=== PATIENT | female | born 1955 | race Caucasian/White ===

== ENCOUNTER 2021-10-25 08:14 | Outpatient (CLI) | payer MEDICARE, BC, SELFPAY ==
--- NOTE | 2021-10-25 08:15 | CRLHL7_ITS ---
For Patients: As a result of the Century Cures Act, medical imaging exams and procedure reports are released immediately into your electronic medical record. You may view this report before your referring provider. If you have questions, please contact your health care provider. Technique: Double-contrast examination was performed with barium. History of esophageal stricture with balloon dilation. Indication: Chest pain, burning sensation. Comparison: None. Findings: Esophagus: Narrowing/stricture at the gastroesophageal junction with GE junction measuring approximately 7-8 mm in diameter. Questionable small erosion just proximal to the GE junction (best seen on series 3). No significant irregularity or obvious extrinsic compressing mass. When patient is placed prone there is a moderate-sized sliding-type hiatal hernia. Exam was performed as an esophagram of the no obvious abnormality or erosion in the stomach. 13 mm. Tablet transverses the GE junction without delay. Esophageal motility is normal. Gastroesophageal reflux: None observed during exam. Fluoroscopy time: 0:51 minutes Impression: 1. Mild distal esophageal stricture with questionable small erosion just proximal to the GE junction. No obvious mass lesion. Recommend attention on endoscopy. 2. Moderate sized sliding-type hiatal hernia seen only when prone. 3. Esophageal motility was normal. 4. No demonstrable reflux during the exam. Dictated by Gabino Carrasco MD @ 10/25/2021 9:44:34 AM (Electronically Signed)
== END 2021-10-25 08:15 | disposition home or self-care (01) ==
LOC: RAD 08:19
PROVIDERS: PCP Internal Medicine; Visit Provider Surgery
DX: R07.89 Other chest pain (principal); K44.9 Diaphragmatic hernia without obstruction or gangrene
CPT/HCPCS: 74221

== ENCOUNTER 2021-11-06 16:39 | Outpatient (CLI) | payer MEDICARE, BC, SELFPAY ==
[2021-11-06 15:43] LABS: Albumin* 4.6 g/dL (3.3-5.0); Chloride* 101 mmol/L (96-114); Potassium* 4.3 mmol/L (3.6-5.1); Sodium* 136 mmol/L (135-149)
[2021-11-06 15:45] LABS: Cholesterol* 235 mg/dL (90-199)
[2021-11-06 15:46] LABS: Alanine Aminotransferase* 22 U/L (4-35); Alkaline Phosphatase* 99 U/L (40-150); Aspartate Amino Transferase* 24 U/L (12-35); Bilirubin Total* 0.9 mg/dL (0.1-1.5); Blood Urea Nitrogen* 16 mg/dL (7-30); Carbon Dioxide* 25 mmol/L (20-32); Creatinine* 0.7 mg/dL (0.5-1.5); Estimated Glomerular Filt Rate 95 ml/min; Glucose* 136 mg/dL (60-115); Total Protein* 7.4 g/dL (6.0-8.3); Triglycerides* 107 mg/dL (40-149)
[2021-11-06 15:47] LABS: Calcium* 9.5 mg/dL (8.4-10.6); HDL Cholesterol* 54 mg/dL (>=50); LDL Cholesterol Calculated 160 mg/dL (<100)
== END 2021-11-06 16:40 | disposition home or self-care (01) ==
PROVIDERS: PCP Internal Medicine; Visit Provider Internal Medicine
DX: E11.9 Type 2 diabetes mellitus without complications (principal)
CPT/HCPCS: 80053; 80061

== ENCOUNTER 2021-11-15 09:11 | Outpatient (CLI) | payer MEDICARE, BC, SELFPAY ==
--- NOTE | 2021-11-15 10:48 | W.ANESCHARGE ---
Anesthesia Charges Start Date/Time Anesthesia Start Date: 11/15/21 Anesthesia Start Time: 10:10 Stop Date/Time Anesthesia Stop Date: 11/15/21 Anesthesia Stop Time: 10:48
--- NOTE | 2021-11-15 10:54 | W.ANESCHARGE ---
Anesthesia Charges Start Date/Time Anesthesia Start Date: 11/15/21 Anesthesia Start Time: 10:10 Stop Date/Time Anesthesia Stop Date: 11/15/21 Anesthesia Stop Time: 10:48
== END 2021-11-15 09:12 | disposition home or self-care (01) ==
LOC: OP CLINIC 09:12
PROVIDERS: PCP Internal Medicine; Visit Provider Surgery
DX: Z12.11 Encounter for screening for malignant neoplasm of colon (principal); K63.5 Polyp of colon; K57.30 Diverticulosis of large intestine without perforation or abscess without bleeding; Z83.71 Family history of colonic polyps
CPT/HCPCS: 00811; 45385; 88305; J2704

== ENCOUNTER 2022-01-25 13:01 | Outpatient (CLI) | payer MEDICARE, BC, SELFPAY | END 2022-01-25 13:02 | disposition home or self-care (01) | LOC: LKVREF 01-30 15:08 | PROVIDERS: PCP Internal Medicine; Visit Provider Family Medicine | DX: R35.0 Frequency of micturition (principal); R30.0 Dysuria; N39.0 Urinary tract infection, site not specified | CPT/HCPCS: 87086 ==

== ENCOUNTER 2022-02-26 11:45 | Outpatient (CLI) | payer MEDICARE, BC, SELFPAY ==
[2022-02-26 14:37] LABS: Chloride* 102 mmol/L (96-114); Potassium* 4.6 mmol/L (3.6-5.1); Sodium* 139 mmol/L (135-149)
[2022-02-26 14:40] LABS: Blood Urea Nitrogen* 14 mg/dL (7-30); Carbon Dioxide* 31 mmol/L (20-32); Creatinine* 0.6 mg/dL (0.5-1.5); Estimated Glomerular Filt Rate 98 ml/min; Glucose* 137 mg/dL (60-115)
[2022-02-26 14:41] LABS: Calcium* 9.5 mg/dL (8.4-10.6)
== END 2022-02-26 11:46 | disposition home or self-care (01) ==
LOC: NFLDREF 11:46
PROVIDERS: PCP Internal Medicine; Visit Provider Internal Medicine
DX: Z01.818 Encounter for other preprocedural examination (principal)
CPT/HCPCS: 80048

== ENCOUNTER 2022-06-03 10:42 | Outpatient (CLI) | payer MEDICARE, BC, SELFPAY ==
--- NOTE | 2022-06-03 11:30 | CRLHL7_ITS ---
For Patients: As a result of the Cures Act, medical imaging exams and procedure reports are released immediately into your electronic medical record. You may view this report before your referring provider. If you have questions, please contact your health care provider. BILATERAL SCREENING MAMMOGRAM WITH COMPUTER-AIDED DETECTION AND TOMOSYNTHESIS TECHNIQUE: CC and MLO views were obtained. These mammographic images have been obtained using full-field digital technique. These mammographic images were interpreted with the benefit of computer-aided detection. Breast Tomosynthesis was used in this interpretation. COMPARISON FILM: 08/02/20, 10/09/18, 10/22/16. FINDINGS: There are scattered areas of fibroglandular density IMPRESSION: There is no radiographic evidence for malignancy. ASSESSMENT: BI-RADS Category 1: Negative RECOMMENDATION: Routine screening mammogram in 1 year. A lay language report of this examination will be provided to the patient. Dario Fernandez M.D. Diagnostic Radiologist [email or web address] Transcribed: 2:07 p.skye briseno/Dictated by: Dario Fernandez MD @ 06/03/2022 12:40:00 PM (Electronically Signed)
== END 2022-06-03 10:43 | disposition home or self-care (01) ==
PROVIDERS: PCP Internal Medicine; Visit Provider Internal Medicine
DX: Z12.31 Encounter for screening mammogram for malignant neoplasm of breast (principal)
CPT/HCPCS: 77063; 77067

== ENCOUNTER 2022-06-04 12:04 | Outpatient (CLI) | payer MEDICARE, BC, SELFPAY ==
--- OUTSIDE RECORDS SUMMARY | 2022-06-04 22:25 | XMS_ITS | Continuity of Care Document ---
Author Name Unknown Organization [facility] Address [address] [address] [place] [address] Phone Care Team Providers Care Head Waiter/Waitress Name Role Phone Myranda Dumont CRNA Unavailable Unavailable Allergies, Adverse Reactions, Alerts Substance Reaction Status Criticality No Known Allergies Active No Inform ation Medications Medication Instructions Dosage Effective Dates (start - stop) Status Comments losartan 25 mg tablet take 1 tablet by oral route every day 25 MG - Active metformin 500 mg tablet take 1 tablet by oral route 2 times every day with morning and evening meals 500 MG - Active esomeprazole magnesium 20 mg tablet,delayed release take 1 tablet by oral route every day before breakfast 1 tablet - Active L-Lysine 500 mg tablet take 1 tablet by oral route every day 1 tablet - Active hydrochlorothiazide 12.5 mg tablet take 1 tablet (12.5MG) by oral route every day 12.5 MG - Active Gaviscon 80 mg-14.2 mg chewable tablet take 1 by Oral route every day 1 - Active biotin 2,500 mcg tablet take 2 Tablet by Oral route every day - Active Probiotic 10 billion cell capsule take 1 by Oral route every day 1 - Active Vitamin D3 2,000 unit tablet take 1 by Oral route every day 1 - Active Vitamin B-12 1,000 mcg tablet take 3 by Oral route every day 3 - Active magnesium 200 mg tablet take 2 Tablet by Oral route every day 2 Tablet - Active Fish Oil 500 mg capsule take 1 Capsule by Oral route every day 1 Capsule - Active GRAPE SEED EXTRACT (unknown strength) take 1 by Oral route every day Not Available - Active TUMS (unknown strength) Not Available - Ac tive Prilosec 40 mg capsule,delayed release take 2 Capsule (80MG) by oral route every day before a meal 80 MG - No Longer Active losartan 50 mg tablet take 1 tablet (50MG) by oral route every day 50 MG - No Longer Active Procedures Procedure Date Ugi Endo; W/balloon Dilat Esop Ugi Endo; W/bx 1/mx Li PH Monitor Level Iv-surg Path Gross/micro Offic Cons New/estab Mod Advance Directives Directive Yes / No Effective Date File Name No Information Encounters Encounter Description Practice Location Reason(s) For Visit Diagnoses Date Provider Providers Copied on Encounter [facility], [address] [address], [place], [place], [id number], [place] tel:[phone] [facility] No Information 2 Julia Motaesa. [address] [facility], [facility] [address], [place], [place], [id number], [place]. tel:[phone] Referring Provider: Marcela Rodriguez, [address] [facility] [address], [place], [address] . tel:[phone] [facility] [address] [address], [place], [place], [address], [place] tel:[phone] [facility] GI Symptoms or Concerns (chief complaint) Esophageal strictureHiata l herniaGastric polypsGastriti s without bleeding, unspecified chronicity, unspecified gastritis typeEsophageal obstructionPol yp of stomach and duodenumDiaphr agmatic hernia without obstruction or gangreneGastri tis, unspecified, without bleeding 2 Susie Medrano. [address] [facility], [place], [place], [id number], [place]. tel:[phone] Sean Green MD. tel:[phone] erring Provider: Sean Garcia, [address], [place], [address]. tel:[phone] [facility], [address] [address], [place], [place], [id number], [place] tel:[phone] No Information No Information Referring Provider: Sean Garcia, [address], [facility] [place], [address]. tel:[phone] [facility], [address] [address], [place], [place], [id number], [place] tel:[phone] [facility] Esoph Stricture/scha tzki RingHiatal HerniaGastriti s W/o BleedGastric Polyp-benignGa stritis W/o BleedEsoph Stricture/scha tzki RingGastric Polyp-benign 3 Shaheed Lester. [address] [facility], [facility] [address], [place], [place], [id number], [place]. tel:[phone] Referring Provider: Prakash Rivera, [address], [place], [address]. tel:[phone] Offic Cons New/estab Mod [facility], [address] [address], [place], [place], [id number], [place] tel:[phone] [facility] Chest pain (chief complaint) Chest Pain NosHeartburn 3 Shaheed Lester. [address] [facility], [facility] [address], [place], [place], [id number], [place]. tel:[phone] Referring Provider: Prakash Rivera, [address], [place], [address]. tel:[phone] Family History Family Member Type Diagnosis Age At Onset First degree family history Problem (finding) No history of Ulcerative Colitis Mother Problem (finding) Asthma First degree family history Problem (finding) No history of Crohn's First degree family history Problem (finding) asthma Brother Problem (finding) Cancer Mother Problem (finding) Cancer, brain First degree family history Problem (finding) Thyroid Disorder First degree family history Problem (finding) No Family history of No history of Colon Polyps Father Problem (finding) Diverticular disease Mother Problem (finding) Cancer, breast Brother Problem (finding) Asthma Son Problem (finding) Cancer First degree family history Problem (finding) Cholelithasis First degree family history Problem (finding) No history of Cancer, colon Immunizations Vaccine Date Status Comments SARS-COV-2 (COVID-19) vaccin e, mRNA, spike protein, LNP, bivalent booster, preservative free, 30 mcg/0.3 mL dose, katlyn-sucrose formulation administered Note: [facility] bi-d irectional interface ; Source: Other Registry influenza, high-dose seasona l, quadrivalent, .7mL dose, preservative free administered Note: [facility] bi-direct ional interface ; Source: Other Registry SARS-COV-2 (COVID-19) vaccin e, mRNA, spike protein, LNP, preservative free, 30 mcg/0.3mL dose administered Note: [facility] bi-direct ional interface ; Source: Other Registry SARS-COV-2 (COVID-19) vaccin e, mRNA, spike protein, LNP, preservative free, 30 mcg/0.3mL dose administered Note: [facility] bi-direct ional interface ; Source: Other Registry influenza, high-dose seasona l, quadrivalent, .7mL dose, preservative free administered Note: [facility] bi-direct ional interface ; Source: Other Registry zoster vaccine recombinant administered N ote: [facility] bi-directional interface ; Source: Other Registry SARS-COV-2 (COVID-19) vaccin e, mRNA, spike protein, LNP, preservative free, 30 mcg/0.3mL dose administered Note: [facility] bi-direct ional interface ; Source: Other Registry SARS-COV-2 (COVID-19) vaccin e, mRNA, spike protein, LNP, preservative free, 30 mcg/0.3mL dose administered Note: [facility] bi-direct ional interface ; Source: Other Registry influenza, high-dose seasona l, quadrivalent, .7mL dose, preservative free administered Note: [facility] bi-direct ional interface ; Source: Other Registry Prevnar 13 administered Note: [facility] bi-d irectional interface ; Source: Other Registry zoster vaccine recombinant administered N ote: [facility] bi-directional interface ; Source: Other Registry Afluria Qd administered Note: [facility] bi-directional interface ; Source: Other Registry Afluria Qd administered Note: [facility] bi-directional interface ; Source: Other Registry Afluria Qd administered Note: [facility] bi-directional interface ; Source: Other Registry Afluria Qd administered Note: [facility] bi-directional interface ; Source: Other Registry Pneumovax administered Note: [facility] bi-d irectional interface ; Source: Other Registry Afluria Qd administered Note: [facility] bi-directional interface ; Source: Other Registry tetanus toxoid, reduced diphtheria toxoid, and acellular pertussis vaccine, adsorbed administered Note: [facility] b i-directional interface ; Source: Other Registry zoster vaccine, live administered Note: [facility] bi-directional interface ; Source: Other Registry Influenza, seasonal, injectable administe red Note: [facility] bi- directional interface ; Source: Other Registry Influenza, seasonal, injecta ble, preservative free administered Note: [facility] bi-direct ional interface ; Source: Other Registry Influenza, seasonal, injectable administe red Note: [facility] bi- directional interface ; Source: Other Registry Payers Payer name Insurance type Covered libertarian ID Authoriza tion(s) Medicare NGS MB [id number] [employer] [id number] Social History Type Description Quantity Date Captured Comments Sex Female Smoking Status No Information Chief Complaint And Reason For Visit No Information Reason For Referral Reason For Referral No Information Plan Of Treatment Date Type Action Status No Information History Of Present Illness Encounter Date Complaint History Of Prese nt Illness GI Symptoms or Concerns Functional Status Date Functional Assessmen t No Information Instructions Date Instruction Additional Infor mation Hiatal Hernia Related to Hiata l hernia Gastritis Related to Hiata l hernia Assessments Type Assessment Date No Information Patient Care Teams Name Effective Dates (start - stop) Status Members No Information
== END 2022-06-04 12:05 | disposition home or self-care (01) ==
LOC: NFLDREF 22:23
PROVIDERS: PCP Internal Medicine; Referring Provider Internal Medicine; Visit Provider Internal Medicine
DX: R10.32 Left lower quadrant pain (principal); E11.9 Type 2 diabetes mellitus without complications; E04.1 Nontoxic single thyroid nodule; E78.5 Hyperlipidemia, unspecified; I10 Essential (primary) hypertension
CPT/HCPCS: 80053; 80061; 82043; 82570

== ENCOUNTER 2022-06-12 08:44 | Outpatient (CLI) | payer MEDICARE, BC, SELFPAY ==
--- NOTE | 2022-06-12 09:00 | CRLHL7_ITS ---
For Patients: As a result of the Century Cures Act, medical imaging exams and procedure reports are released immediately into your electronic medical record. You may view this report before your referring provider. If you have questions, please contact your health care provider. Indication: LLQ PAIN Technique: Postcontrast CT abdomen and pelvis. 91 cc Isovue 370 intravenous contrast. Please note that all CT scans at this facility use dose modulation, iterative reconstruction, and/or weight-based dosing when appropriate to reduce radiation dose to as low as reasonably achievable. Comparison: CT 07/15/2016 Findings: No pleural effusion. No basilar infiltrate. Hiatal hernia is decreased compared to the prior exam, now measuring 3.4 cm compared to 5.8 cm on the prior exam. The adrenal glands are normal. No hydronephrosis or solid renal mass. The spleen is within normal limits. Normal pancreas. Unremarkable liver. The gallbladder is absent. Atherosclerotic disease. No aneurysm. Improved appearance of the gastric wall compared to the prior exam. Bladder normal. Unremarkable uterus. Extensive sigmoid colon diverticulosis. Diverticulosis present elsewhere throughout the colon. No acute inflammation. No adnexal mass or free fluid. No abscess. Left periuterine vascularity is likely similar. Stable subcentimeter mesenteric lymph nodes. Impression: Extensive sigmoid diverticulosis without acute inflammation. No bowel obstruction. Status post cholecystectomy. No evidence of common bile duct stone. 3.4 cm hiatal hernia. Please note that all CT scans at this facility use dose modulation, iterative reconstruction, and/or weight-based dosing when appropriate to reduce radiation dose to as low as reasonably achievable. Dictated by Dario Fernandez MD @ 06/12/2022 1:20:42 PM (Electronically Signed)
== END 2022-06-12 08:45 | disposition home or self-care (01) ==
LOC: CT 08:45
PROVIDERS: PCP Internal Medicine; Visit Provider Internal Medicine
DX: R10.32 Left lower quadrant pain (principal); K57.30 Diverticulosis of large intestine without perforation or abscess without bleeding; K44.9 Diaphragmatic hernia without obstruction or gangrene
CPT/HCPCS: 74177; Q9967

== ENCOUNTER 2022-09-18 08:57 | Outpatient (CLI) | payer MEDICARE, BC, SELFPAY ==
--- NOTE | 2022-09-18 09:15 | CRLHL7_ITS ---
For Patients: As a result of the Century Cures Act, medical imaging exams and procedure reports are released immediately into your electronic medical record. You may view this report before your referring provider. If you have questions, please contact your health care provider. Indication: Low back pain. Trauma. Technique: Multiplanar, multisequence MRI of the lumbar spine was performed without intravenous contrast. Comparison: MRI lumbar spine 12/18/2020. Findings: There are 5 lumbar type vertebral segments identified. The vertebral body heights are maintained without evidence of fracture. There is no discrete T1 hypointense marrow infiltrating process. The conus medullaris terminates at L1, normal. Cauda equina appears unremarkable. T12-L1: No spinal canal or neural foraminal stenosis. L1-2: No spinal canal or neural foraminal stenosis. L2-3: No spinal canal or neural foraminal stenosis. Mild facet arthropathy. L3-4: Minimal disc bulge without spinal canal or neural foraminal narrowing. Mild to moderate facet arthropathy. L4-5: Trace anterolisthesis. Disc bulge slightly eccentric towards the left. Disc bulge with facet hypertrophy result in mild to moderate left lateral recess narrowing with potential encroachment upon the descending left L5 nerve. Mild neural foraminal narrowing. Moderate facet arthropathy. Stable. L5-S1: Small central annular fissure. No spinal canal or neural foraminal stenosis. Mild facet arthropathy. The visualized sacroiliac joints appear patent. Impression: 1. At L4-5, stable mild to moderate left lateral recess narrowing with potential encroachment upon the descending left L5 nerve. Mild neural foraminal narrowing. 2. Mild to moderate multilevel facet arthropathy. Dictated by Robbie Harmon MD @ 09/20/2022 8:14:50 AM (Electronically Signed)
== END 2022-09-18 08:58 | disposition home or self-care (01) ==
LOC: MRI 08:58
PROVIDERS: PCP Internal Medicine; Visit Provider Physical Medicine & Rehabilitation Pain Medicine
DX: M54.50 Low back pain, unspecified (principal); M51.26 Other intervertebral disc displacement, lumbar region
CPT/HCPCS: 72148

== ENCOUNTER 2022-12-25 09:00 | Outpatient (RCR) | payer MEDICARE, BC, SELFPAY | END 2023-02-04 12:05 | disposition home or self-care (01) | PROVIDERS: PCP Internal Medicine; Referring Provider Nurse Practitioner; Visit Provider Nurse Practitioner | DX: M54.16 Radiculopathy, lumbar region (principal); M70.61 Trochanteric bursitis, right hip; M70.62 Trochanteric bursitis, left hip; R53.1 Weakness; R26.9 Unspecified abnormalities of gait and mobility; Z51.89 Encounter for other specified aftercare | CPT/HCPCS: 97012; 97032; 97110; 97140; 97161 ==

== ENCOUNTER 2023-02-06 08:06 | Outpatient (CLI) | payer MEDICARE, BC, SELFPAY | END 2023-02-06 08:07 | disposition home or self-care (01) | LOC: NFLDREF 02-07 14:45 | PROVIDERS: PCP Internal Medicine; Referring Provider Internal Medicine; Visit Provider Internal Medicine | DX: R30.0 Dysuria (principal) | CPT/HCPCS: 87086; 87186 ==

== ENCOUNTER 2023-03-28 10:19 | Emergency (ER) | payer MEDICARE, BC, SELFPAY ==
[2023-03-28] VITALS (25 sets, daily range): BP systolic 130–159; BP diastolic 74–86; PULSE 68–97; RESP 16; TEMP 36.3; O2SAT 94–99; BMI 31.5
--- NOTE | 2023-03-28 10:39 | ED_ITS ---
HPI - Chest Pain General Time Seen by Provider: 10:40 Date Seen: 03/28/23 Chief Complaint: Chest Pain Stated Complaint: chest pain Time Seen by Provider: 03/28/23 10:38 Source: patient and RN notes reviewed Mode of arrival: ambulatory Limitations: no limitations History of Present Illness HPI narrative: This 67-year-old female is coming in with severe substernal lower chest pain and pressure. She is having pain in the posterior aspect of her left shoulder that she describes as severe. Last night after supper, started to develop some left upper abdominal discomfort. She just did not feel well. She awoke this morning or early and had these chest symptoms, she states she basically hurts from her abdomen up into her chest and shoulder. She does feel short of breath with this. She is diabetic. She was wondering if this could be her reflux disease, did have surgery about a year ago for a hiatal hernia. She tried Gaviscon, did not help in it usually would. She has also had a history of having her esophagus dilated. She has been able to drink though and is not having any regurgitant symptoms or vomiting. She was worried as she did eat eat some bread with peanut butter on last night to take her medications. She had been using yogurt but notes she has been trying to improve her sugars. Again, she is diabetic, see that she is not on any medicine for hyperlipidemia because she is reported to be intolerant of these medications. She does not take daily aspirin but notes she does use Krill oil. No fevers or chills. She awoke at 5:00 a.m. with the severe symptoms that are now on the chest, they have been unremitting, this is about almost 6 hours ago now. No prior cardiac history known. She is status post cholecystectomy per report. MD complaint: chest pain, chest heaviness and chest discomfort Risk Factors Coronary artery disease risk factors: diabetes and hyperlipidemia Related Data Home Medications Medication Instructions Recorded Confirmed Lactobacillus acidophilus 10 mg PO QDAY 10/17/21 02/06/23 aluminum hydrox-magnesium carb 254 1 ml PO .As Needed PRN 10/17/21 02/06/23 mg-237.5 mg/5 mL oral suspension biotin 1 mg tablet 1 mg PO QDAY 10/17/21 02/06/23 cholecalciferol (vitamin D3) 25 2,000 unit PO DAILY 10/17/21 02/06/23 mcg (1,000 unit) tablet cyanocobalamin (vitamin B-12) 1,000 mcg PO DAILY 10/17/21 02/06/23 1,000 mcg tablet lysine 500 mg tablet 500 mg PO DAILY 10/17/21 02/06/23 magnesium oxide 400 mg (241.3 mg 400 mg PO DAILY 10/17/21 02/06/23 magnesium) tablet melatonin 5 mg capsule 5 mg PO .Bedtime as needed PRN 10/17/21 02/06/23 psyllium husk (with sugar) 2.5 1.7 wafer PO DAILY 10/17/21 02/06/23 gram oral wafer (Metamucil Fiber Thin) Previous Rx's Medication Instructions Recorded Diabetic Test Strips #180 strips 10/19/21 Test Strips #100 ea 02/07/22 blood-glucose meter #1 ea 02/07/22 lancets #200 ea 02/07/22 hydrochlorothiazide 12.5 mg capsule 12.5 mg PO DAILY #90 caps 01/03/23 losartan 25 mg tablet 25 mg PO DAILY #90 tabs 01/03/23 metformin 500 mg tablet 500 mg PO BIDWMEAL #180 tabs 01/03/23 amoxicillin 875 mg-potassium 1 tab PO BID #20 tabs 03/28/23 clavulanate 125 mg tablet Allergies Allergy/AdvReac Type Severity Reaction Status Date / Time glimepiride Allergy Intermediate See comment Verified 02/06/23 08:10 simvastatin Allergy Intermediate Muscle Verified 02/06/23 08:10 aches glucosamine Allergy Unknown Muscle Verified 02/06/23 08:10 aching Review of Systems Status of ROS Reports: 6 or more systems reviewed and unremarkable except as noted in History and below [facility] Medical History History of seizure ?Z87.898 - Personal history of other specified conditions (ICD-10) Surgical History History of repair of hiatal hernia ?Z98.890 - Other specified postprocedural states (ICD-10) ?Z87.19 - Personal history of other diseases of the digestive system (ICD-10) History of tubal ligation ?Z98.51 - Tubal ligation status (ICD-10) History of laparoscopic cholecystectomy ?Z90.49 - Acquired absence of other specified parts of digestive tract (ICD- 10) Family History Mother Breast cancer History of hyperlipidemia Brain cancer Father Dementia Brother Lymphoma Son Testicular cancer Social History Smoking Status: Never smoker How often do you have a drink containing alcohol: never How often do you have six or more drinks on one occasion: Never AUDIT-C Alcohol total score: 0 Non-prescribed substance use: denies use Little interest or pleasure in doing things: not at all Feeling down, depressed, or hopeless: not at all Exam Const Vital Signs, click to edit/add: Vital Signs - 24 hr 03/28/23 10:25 03/28/23 10:46 03/28/23 10:54 Temperature 97.4 F L Pulse Rate 91 Pulse Rate [Pulse Oximeter] 97 Respiratory Rate 16 Blood Pressure Blood Pressure [Right Upper Arm] 135/82 Pulse Oximetry 94 96 95 Oxygen Delivery Method Room Air 03/28/23 11:03 03/28/23 11:04 03/28/23 11:05 Temperature Pulse Rate 79 81 81 Pulse Rate [Pulse Oximeter] Respiratory Rate Blood Pressure 144/86 H Blood Pressure [Right Upper Arm] Pulse Oximetry 96 96 96 Oxygen Delivery Method 03/28/23 11:15 03/28/23 11:30 03/28/23 11:31 Temperature Pulse Rate 77 75 78 Pulse Rate [Pulse Oximeter] Respiratory Rate Blood Pressure 137/82 Blood Pressure [Right Upper Arm] Pulse Oximetry 96 97 98 Oxygen Delivery Method 03/28/23 11:45 03/28/23 12:00 03/28/23 12:01 Temperature Pulse Rate 74 74 81 Pulse Rate [Pulse Oximeter] Respiratory Rate Blood Pressure 130/85 Blood Pressure [Right Upper Arm] Pulse Oximetry 96 97 96 Oxygen Delivery Method 03/28/23 12:15 03/28/23 12:48 Temperature Pulse Rate 75 86 Pulse Rate [Pulse Oximeter] Respiratory Rate Blood Pressure Blood Pressure [Right Upper Arm] Pulse Oximetry 97 97 Oxygen Delivery Method This 67-year-old female is alert, interactive, no apparent distress. She is able speak in complete sentences, does look comfortable. Pupils are equal round, sclera clear. Speech is normal. Lungs are clear, good air entry, no wheezing or crackles. CV regular rate and rhythm, no murmur, normal S1-S2, no S3-S4. No reproducible anterior chest wall tenderness. Abdomen is soft, nondistended, mild lower abdominal tenderness throughout the lower abdomen but no rebound or guarding. I do not feel any organomegaly. Documenting provider has reviewed patient's vital signs: yes Course Course ED Course: Reviewed with this patient that we are going to give her 324 mg oral aspirin. I do think she is at risk for ischemic heart disease and certainly we are considering this. There are other possible etiologies, complications with her fundoplication surgery. She states her gallbladder is out. It could be GI symptomatology with radiation to her chest. We discussed there can be primary lung issues, vascular issues including but not limited to pulmonary emboli, aneurysm, dissection. She currently is hemodynamically stable. Will continue to monitor her here. Start with a portable chest x-ray, she understands she may need more advanced imaging. Will get a full complement of labs. Reevaluation(s) Time of Reevaluation #1: 12:06 Reevaluation #1: Reviewed normal labs with patient. She is still feeling nearly the same chest discomfort, radiates to posteriorly behind the shoulder. She can freely mobilized the shoulder, does not increase the pain. I can palpate around her shoulder, her chest wall, I cannot reproduce her pain, it is deeper for her than that. She notes when she was having reflux, would get a little epigastric discomfort and feel it in her left chest. This was prior to her surgery. She had a fundoplication for her hiatal hernia done at [facility] about a year ago per her report. Her troponin is normal, would anticipate after 6 hours of severe pain, would see arise in this. We will continue to follow-up. In the meantime, will give her 40 mg IV Protonix and proceed with chest abdomen pelvis imaging with IV contrast. Her D-dimer is normal. Time of Reevaluation #2: 13:27 Reevaluation #2: Reviewed CT findings with the patient. She believes the thyroid abnormality has been followed, reviewed with her I just need her to take the CT report make sure that they do not need to do anything differently. We also reviewed the endometrial thickness on the CT, the question of a right lung lesion with recommended PET CT scanning. Her current issue though is diverticulitis. Were going to give her dose of IV Unasyn and Toradol. We will follow up with 1 more troponin EKG but this is very likely nothing to do with her heart. She will plan on discharging to home, she does not feel like she wants or needs hospitalization. Vital Signs Vital signs: Initial Vital Signs Temperature 97.4 F L 03/28/23 10:25 Temperature Source Temporal Artery Scan 03/28/23 10:25 Pulse Rate 97 03/28/23 10:25 Respiratory Rate 16 03/28/23 10:25 Blood Pressure 135/82 03/28/23 10:25 Blood Pressure Mean 99 03/28/23 10:25 Blood Pressure Position Sitting 03/28/23 10:25 Pulse Oximetry 94 03/28/23 10:25 Oxygen Delivery Method Room Air 03/28/23 10:25 Vital Signs Temperature 97.4 F L 03/28/23 10:25 Pulse Rate 97 03/28/23 10:25 Respiratory Rate 16 03/28/23 10:25 Blood Pressure 135/82 03/28/23 10:25 Pulse Oximetry 94 03/28/23 10:25 Oxygen Delivery Method Room Air 03/28/23 10:25 Temperature 97.4 F L 03/28/23 10:25 Pulse Rate 86 03/28/23 12:48 Respiratory Rate 16 03/28/23 10:25 Blood Pressure 130/85 03/28/23 12:01 Pulse Oximetry 97 03/28/23 12:48 Oxygen Delivery Method Room Air 03/28/23 10:25 Medications Administered Medications: Discontinued Medications Generic Name Dose Route Start Last Admin Trade Name Freq PRN Reason Stop Dose Admin Aspirin 324 mg 03/28/23 10:46 03/28/23 10:50 Aspirin 81 Mg Tab.Chew PO 03/28/23 10:47 324 mg ONCE ONE Administration Ampicillin Sodium/Sulbactam 100 mls @ 200 mls/hr 03/28/23 13:23 03/28/23 13:59 Sodium 3 gm/ Sodium Chloride IVPB 03/28/23 13:24 200 mls/hr ONCE ONE Administration Ketorolac Tromethamine 15 mg 03/28/23 13:22 03/28/23 13:59 Ketorolac 15 Mg/Ml Inj IVP 03/28/23 13:23 15 mg ONCE ONE Administration Pantoprazole Sodium 40 mg 03/28/23 12:04 03/28/23 12:33 Pantoprazole Sodium 40 Mg Inj IVP 03/28/23 12:05 40 mg ONCE ONE Administration MDM - Chest Pain Lab Data Attestation: I reviewed the patient's lab results. Labs: Lab Results 03/28/23 03/28/23 Range/Units 11:00 13:54 WBC 10.14 (4.50-11.00) K/uL RBC 4.61 (4.00-5.20) m/uL Hgb 13.3 (12.0-16.0) gm/dL Hct 39.5 (33.0-51.0) % MCV 86 (80-100) fL MCH 29 (26-34) pg MCHC 34 (32-36) gm/dL RDW Coeff of Mannie 12.7 (11.5-15.5) % Plt Count 225 (140-440) K/uL Neut % (Auto) 79.1 H (42.0-72.0) % Lymph % (Auto) 10.6 L (20-44) % [place] % (Auto) 8.5 (0.0-11.0) % Eos % (Auto) 1.4 (0.0-7.0) % Baso % (Auto) 0.2 (0.0-3.0) % Neut # (Auto) 8.00 H (1.7-7.0) K/uL Lymph # (Auto) 1.10 (0.90-2.90) K/uL [place] # (Auto) 0.90 (0.00-0.90) K/UL Eos # (Auto) 0.14 (0.00-0.50) K/uL Baso # (Auto) 0.02 (0.00-0.30) K/uL Abs Immat Gran (auto) 0.02 (0.00-0.30) K/uL Imm/Tot Granulo (auto) 0.2 % D-Dimer Quant (PE/DVT) 0.35 (0.00-0.50) ug/ml Sodium 136 (135-149) mmol/L Potassium 4.0 (3.6-5.1) mmol/L Chloride 104 (96-114) mmol/L Carbon Dioxide 25 (20-32) mmol/L Anion Gap 7 (7-15) mEq/L BUN 20 (7-30) mg/dL Creatinine 0.6 (0.5-1.5) mg/dL Estimated Creat Clear 50.41 Estimated GFR 98 ml/min Glucose 175 H (60-115) mg/dL Lactate 0.9 (0.5-1.9) mmol/L Calcium 9.2 (8.4-10.6) mg/dL Total Bilirubin 0.7 (0.1-1.5) mg/dL AST 18 (12-35) U/L ALT 17 (4-35) U/L Alkaline Phosphatase 106 (40-150) U/L Troponin I < 0.01 L (0.01-0.04) ng/mL C-Reactive Protein 1.6 H (0.5-1.0) mg/dL NT-Pro-B Natriuret Pep 116 pg/mL Total Protein 7.6 (6.0-8.3) g/dL Albumin 4.3 (3.3-5.0) g/dL Lipase 28 (23-300) U/L POC Troponin I 0.02 0.01 (0.01-0.04) ng/ml Imaging Data Chest x-ray: Attestation: I have reviewed the pertinent imaging results. Radiologist's impression: Patient: CAN DC Facility:?[facility] Patient ID:?[id number] Site Patient ID:?[id number]. Site :?[id number] Study:?XRay Chest PORTABLE 1 VIEW-03/28/2023 11:05:24 AM Ordering Physician:?Mery Ortiz Final Report: INDICATION: Chest pain. TECHNIQUE: Chest 1 views. COMPARISON: None. FINDINGS: Cardiovasculature and mediastinum: Heart size and vasculature are normal in caliber and appearance. Lungs and pleural spaces: Lungs are clear. No sign of infiltrate or mass. No sign of pleural effusion. No pneumothorax. Bones and soft tissues: No significant findings. IMPRESSION: No acute cardiopulmonary process. Dictated by Abrahan Weaver MD @ 03/28/2023 11:45:34 AM (Electronic Signature) CT Chest/Ab/Pelvis: Attestation: I have reviewed the pertinent imaging results. Radiologist's impression: Patient: CAN DC Facility:?[facility] Patient ID:?[id number] Site Patient ID:?[id number]. Site :?[id number] Study:?CT Chest/Abd/Pelvis W/IV-03/28/2023 12:53:11 PM Ordering Physician:Skye Ortiz Final Report: INDICATION: LEFT SIDE ABDOMEN PAIN,CHEST PAIN HX OF PERICARDITIS ,GERD TECHNIQUE: CT chest, abdomen and pelvis acquired with 95 cc Isovue 370 IV contrast. COMPARISON: CT abdomen/pelvis 06/12/2022 and 07/15/2016 FINDINGS: CHEST: Right thyroid nodule measuring 2.0 centimeters. No thoracic lymphadenopathy. The heart is normal in size. Trace pericardial effusion. The thoracic aorta and pulmonary artery are normal in caliber. No central pulmonary embolism. There is a subpleural part solid and part ground-glass nodular seen in the lateral aspect of the right upper lobe measuring approximately 2.2 centimeters in greatest dimension. No focal airspace consolidation, pleural effusion, or pneumothorax. ABDOMEN AND PELVIS: Status post cholecystectomy. The liver, spleen, pancreas, and bilateral adrenal glands are within normal limits. The kidneys, ureters, and bladder are within normal limits. The uterus is normal in size with thickening of the endometrium measuring approximately 0.9 centimeters. Moderate hiatal hernia. No evidence of bowel obstruction. Acute, uncomplicated diverticulitis of the sigmoid colon. No pericolonic abscess. Small volume free fluid in the dependent aspect of the pelvis. No free air. SOFT TISSUE/MUSCULOSKELETAL: No acute fracture or malalignment. No suspicious osseous lesions. IMPRESSION: 1. Acute, uncomplicated diverticulitis of the sigmoid colon. No pericolonic abscess. 2. Small volume fluid in the dependent aspect of the pelvis, likely secondary to inflammatory changes of the colon. 3. The endometrium appears thickened measuring approximately 0.9 centimeters. Recommend nonemergent/outpatient pelvic ultrasound for further assessment. 4. Right thyroid nodule measuring 2.0 centimeters. Recommend dedicated thyroid ultrasound if not previously performed. 5. There is a subpleural, part solid and part ground-glass nodular opacity seen in the lateral aspect of the right upper lobe. Recommend nonemergent PET-CT for further assessment. Please note that all CT scans at this facility use dose modulation, iterative reconstruction, and/or weight-based dosing when appropriate to reduce radiation dose to as low as reasonably achievable. Dictated by Abrahan Weaver MD @ 03/28/2023 1:17:32 PM (Electronic Signature) ECG Data Attestation: I personally reviewed and interpreted this ECG as follows: (Sinus rhythm, 81 beats per minute. She does have new Q-waves certainly V4 through V6, potentially V3 as well. Old but unchanged Q-waves lead 3 and AVF, lead 2 is normal. There is no acute ST segment change or T-wave abnormality noted on this EKG. The lateral Q-wave changes are new compared to J) ECG interpretation date: 03/28/23 ECG interpretation time: 10:57 Prior ECG tracings: available for review (New lateral Q-wave changes.) Interpretation: EKG timed 1:55 p.m. showing normal sinus rhythm, 76 beats per minute. Q-waves inferiorly in 3 and AVF, unchanged. Q-waves V3 through V6, unchanged from earlier EKG today but new compared to prior EKG from February of 2022. No acute ischemic change noted, QT corrected 427 milliseconds. Discharge Plan Discharge Clinical Impression: Diverticulitis Patient Disposition: Home, Self-Care Condition: Stable Instructions: Diverticulitis (ED), Diverticulitis Diet (ED) Additional Instructions: You will be on oral antibiotics, 1st dose due this evening, take as prescribed. Can use Tylenol and ibuprofen per bottle directions as needed for pain control. Need to schedule a clinic follow-up with your primary provider, need to review the CT incidental findings as we discussed. Follow the dietary handouts recommended while you are having diverticulitis. If you develop increasing pain, develops fever, bloody diarrhea or have vomiting with acute diverticulitis, do need to return to the ER for further evaluation. Colonoscopy should be considered after this episode has resolved, usually recommend waiting 8 weeks to help minimize risk of perforation after episode of acute diverticulitis. Do also recommend getting an echo of your heart updated, ultimately defer to Dr. Chen on this however. Activity Level: Activity as Tolerated Prescriptions: New amoxicillin-pot clavulanate 875-125 mg tablet 1 tab PO BID Qty: 20 0RF No Action Metamucil Fiber Thin 2.5 gram wafer 1.7 wafer PO DAILY lysine 500 mg tablet 500 mg PO DAILY melatonin 5 mg capsule 5 mg PO .Bedtime as needed PRN cholecalciferol (vitamin D3) 25 mcg (1,000 unit) tablet 2,000 unit PO DAILY biotin 1 mg tablet 1 mg PO QDAY aluminum hydrox-magnesium carb 254-237.5 mg/5 mL suspension 1 ml PO .As Needed PRN magnesium oxide 400 mg (241.3 mg magnesium) tablet 400 mg PO DAILY cyanocobalamin (vitamin B-12) 1,000 mcg tablet 1,000 mcg PO DAILY Lactobacillus acidophilus Capsule 10 mg PO QDAY (DME) Diabetic Test Strips Misc See Rx Instructions .Route Qty: 180 3RF Rx Instructions: BID. (DME) blood-glucose meter Kit See Rx Instructions .Route Qty: 1 0RF Rx Instructions: Patient to test twice daiy (DME) lancets Misc See Rx Instructions .Route Qty: 200 0RF Rx Instructions: Patient to test twice daily (DME) Test Strips Misc See Rx Instructions .Route Qty: 100 1RF Rx Instructions: BID hydrochlorothiazide 12.5 mg capsule 12.5 mg PO DAILY Qty: 90 1RF metformin 500 mg tablet 500 mg PO BIDWMEAL Qty: 180 1RF losartan 25 mg tablet 25 mg PO DAILY Qty: 90 1RF Follow Up/Referrals: Soumya Chen MD [Primary Care Provider] - Stand Alone Forms: [facility] Info Instructions
--- NOTE | 2023-03-28 10:47 | CRLHL7_ITS ---
For Patients: As a result of the Century Cures Act, medical imaging exams and procedure reports are released immediately into your electronic medical record. You may view this report before your referring provider. If you have questions, please contact your health care provider. INDICATION: Chest pain. TECHNIQUE: Chest 1 views. COMPARISON: None. FINDINGS: Cardiovasculature and mediastinum: Heart size and vasculature are normal in caliber and appearance. Lungs and pleural spaces: Lungs are clear. No sign of infiltrate or mass. No sign of pleural effusion. No pneumothorax. Bones and soft tissues: No significant findings. IMPRESSION: No acute cardiopulmonary process. Dictated by Abrahan Weaver MD @ 03/28/2023 11:45:34 AM (Electronically Signed)
[2023-03-28] MEDS: ASPIRIN 81 MG TAB.CHEW 324 MG PO (10:50)
[2023-03-28 11:08] LABS: Lactate* 0.9 mmol/L (0.5-1.9)
--- OUTSIDE RECORDS SUMMARY | 2023-03-28 11:08 | XMS_ITS | Clinical Summary ---
Author Name Unknown Organization [facility] Address [place], [place] [address] Care Team Providers Care Dry Primer Powder Blender Name Role Phone Soumya Chen MD Primary Care Provider [phone] Allergies Active Allergy Reactions Criticality Noted Date Comments Glimepiride Vestibular Toxicity 03/05/2022 Glucosamine Myalgia 03/05/2022 [id number]-Rpg-Hzj Reductase Inhibitors Myalgia 12/12/2021 Medications Medication Sig Dispensed Refills Start Date End Date Status Accu-Chek Lori Plus test strp strip USE TO TEST TWICE DAILY 0 10/19/2021 Active hydroCHLOROthiazide 12.5 mg capsule Take 12.5 mg by mouth once daily. 0 09/24/2021 Active Accu-Chek Softclix Lancets USE TO TEST TWICE DAILY. 0 10/17/2021 Active losartan (COZAAR) 25 mg tablet Take 25 mg by mouth once daily in the evening. 0 09/24/2021 Active metFORMIN (GLUCOPHAGE) 500 mg tablet Take 500 mg by mouth two times daily with meals. 0 09/24/2021 Active esomeprazole (NEXIUM) 20 mg capsule Take 20 mg by mouth two times daily. 0 12/12/2021 Active cholecalciferol (VITAMIN D3) 2,000 unit capsule Take 2,000 units by mouth once daily. 0 Active cyanocobalamin (VITAMIN B12) 1,000 mcg tablet Take 1,000 mcg by mouth once daily. 0 Active lysine 500 mg tab Take 500 mg by mouth once daily. 0 Active magnesium oxide (MAG-OX 400) 400 mg tablet Take 400 mg by mouth once daily. 0 Active melatonin 5 mg capsule Take 5 mg by mouth at bedtime if needed. 0 Active psyllium husk, with sugar, 2.5 gram wafr Take by mouth once daily. 0 Active Biotin 1 mg tablet Take 1 mg by mouth once daily. 0 Active Aluminum Hydrox-Magnesium Carb 254-237.5 mg/5 mL susp Take 1 mL by mouth each time if needed. 0 Active FISH OIL-DHA-EPA ORAL Take by mouth. 0 Active sennosides-docusate (SENOKOT S) (8.6-50 mg) tabletIndications:Gastr oesophageal reflux disease, unspecified whether esophagitis present Take 1 Tablet by mouth 2 times daily if needed for Constipation. 20 Tablet 0 03/07/2022 Active oxyCODONE (ROXICODONE) 5 mg immediate release tabletIndications:Gastr oesophageal reflux disease, unspecified whether esophagitis present,Hiatal hernia Take 1 Tablet (5 mg) by mouth every 4 hours if needed for Pain. 10 Tablet 0 03/07/2022 Active ondansetron (ZOFRAN ODT) 4 mg disintegrating tabletIndications:Gastr oesophageal reflux disease, unspecified whether esophagitis present Place 1 Tablet (4 mg) on the tongue every 8 hours if needed for Nausea/Vomiting . 20 Tablet 0 03/07/2022 Active Active Problems Problem Noted Date Diagnosed Date Hiatal hernia GERD (gastroesophageal reflux disease) Social History Tobacco Use Types Packs/Day Years Used Date Smoking Tobacco: Never Smokeless Tobacco: Never Tobacco Cessation:Counseling Given: Not Answered Alcohol Use Standard Drinks/Week Comments Never 0 (1 standard drink = 0.6 oz pur e alcohol) Sex and Gender Information Value Date Recorded Sex Assigned at Not on file Gender Identity Not on file Sexual Orientation Not on file Obstetrics History Last Filed Vital Signs Vital Sign Reading Time Taken Comments Blood Pressure 141/76 03/07/2022 7:00 PM CONCRETE SMOOTHER Pulse 82 03/07/2022 7:00 PM CONCRETE SMOOTHER Temperature 36.5 ??C (97.7 ??F) 03/07/2022 7:00 PM CS T Respiratory Rate 16 03/07/2022 7:00 PM CONCRETE SMOOTHER Oxygen Saturation 95% 03/07/2022 7:15 PM CONCRETE SMOOTHER Inhaled Oxygen Concentration - - Weight 90.7 kg (200 lb) 03/07/2022 11:40 AM CONCRETE SMOOTHER Height 168.9 cm (5' 6.5) 03/07/2022 11:40 AM CS T Body Mass Index 31.8 03/07/2022 11:40 AM CONCRETE SMOOTHER Plan of Treatment Health Maintenance Due Date Last Done Comments Tdap 1965 Depression screening for age 12+ 1966 Hepatitis C screening for ag e 18-79 1972 Tetanus booster 1974 Colonoscopy through age 75 05/12/1999 Lipids for age 45-75 05/12/1999 Mammogram for age 45-75 05/12/1999 Zoster (shingles) series for age 50+ (1 of 2) 2004 DEXA/DXA scan for age 65+ 05/12/2019 Medicare Wellness for age 65+ 05/12/2019 Pneumococcal series for age 65+ (1 of 1 - PCV) 05/12/2019 COVID-19 vaccine series (2022- season) 2022 11/27/2021, 07/31/2021, 12/21/2020, Additional history exists Influenza for age 65+ 10/25/2022 BMI (ht and wt on same day) for age 18+ 12/12/2022 12/12/2021 Advance Directives Latest Code Status on File Code Status Date Activated Date Inactivated Comments Full Code 03/07/2022 11:18 AM 03/07/2022 10:31 PM Question Answer Comments Code Status Discussion: Unable to Assess Preferences, Provider to review later Care Teams Dry Primer Powder Blender Relationship Specialty Start Date End Date Soumya Chen MD [address] [place] [id number] PCP - General Internal Medicine 02/15/22
[2023-03-28 11:10] LABS: Basophils Absolute Auto 0.02 K/uL (0.00-0.30); Basophils Percent Auto 0.2 % (0.0-3.0); Eosinophils Absolute Auto 0.14 K/uL (0.00-0.50); Eosinophils Percent Auto 1.4 % (0.0-7.0); Hematocrit 39.5 % (33.0-51.0); Hemoglobin* 13.3 gm/dL (12.0-16.0); Immature Granulocytes Abs Auto 0.02 K/uL (0.00-0.30); Immature Granulocytes Pct Auto 0.2 %; Lymphocytes Percent Auto 10.6 % (20-44); Mean Corpuscular HGB Conc 34 gm/dL (32-36); Mean Corpuscular Hemoglobin 29 pg (26-34); Mean Corpuscular Volume 86 fL (80-100); Monocytes Percent Auto 8.5 % (0.0-11.0); Neutrophils Percent Auto 79.1 % (42.0-72.0); Platelet Count* 225 K/uL (140-440); RDW Coefficient of Variation % 12.7 % (11.5-15.5); Red Blood Count 4.61 m/uL (4.00-5.20); White Blood Count* 10.14 K/uL (4.50-11.00)
[2023-03-28 11:12] LABS: Slide Review Reflex No
[2023-03-28 11:16] LABS: Troponin, Point-of-Care* 0.02 ng/ml (0.01-0.04)
[2023-03-28 11:31] LABS: Albumin* 4.3 g/dL (3.3-5.0); Chloride* 104 mmol/L (96-114); Sodium* 136 mmol/L (135-149)
[2023-03-28 11:34] LABS: Alanine Aminotransferase* 17 U/L (4-35); Alkaline Phosphatase* 106 U/L (40-150); Anion Gap 7 mEq/L (7-15); Aspartate Amino Transferase* 18 U/L (12-35); Bilirubin Total* 0.7 mg/dL (0.1-1.5); Blood Urea Nitrogen* 20 mg/dL (7-30); Carbon Dioxide* 25 mmol/L (20-32); Creatinine* 0.6 mg/dL (0.5-1.5); Est. Creatinine Clearance* 50.41; Estimated Glomerular Filt Rate 98 ml/min; Glucose* 175 mg/dL (60-115); Lipase* 28 U/L (23-300); Total Protein* 7.6 g/dL (6.0-8.3)
[2023-03-28 11:35] LABS: Calcium* 9.2 mg/dL (8.4-10.6); D Dimer Quantitative* 0.35 ug/ml (0.00-0.50)
[2023-03-28 11:37] LABS: C Reactive Protein* 1.6 mg/dL (0.5-1.0)
[2023-03-28 11:47] LABS: NT Pro B Type NatriureticPept* 116 pg/mL; Troponin I* < 0.01 ng/mL (0.01-0.04)
--- NOTE | 2023-03-28 12:05 | CRLHL7_ITS ---
For Patients: As a result of the 21st Century Cures Act, medical imaging exams and procedure reports are released immediately into your electronic medical record. You may view this report before your referring provider. If you have questions, please contact your health care provider. INDICATION: LEFT SIDE ABDOMEN PAIN,CHEST PAIN HX OF PERICARDITIS ,GERD TECHNIQUE: CT chest, abdomen and pelvis acquired with 95 cc Isovue 370 IV contrast. COMPARISON: CT abdomen/pelvis 06/12/2022 and 07/15/2016 FINDINGS: CHEST: Right thyroid nodule measuring 2.0 centimeters. No thoracic lymphadenopathy. The heart is normal in size. Trace pericardial effusion. The thoracic aorta and pulmonary artery are normal in caliber. No central pulmonary embolism. There is a subpleural part solid and part ground-glass nodular seen in the lateral aspect of the right upper lobe measuring approximately 2.2 centimeters in greatest dimension. No focal airspace consolidation, pleural effusion, or pneumothorax. ABDOMEN AND PELVIS: Status post cholecystectomy. The liver, spleen, pancreas, and bilateral adrenal glands are within normal limits. The kidneys, ureters, and bladder are within normal limits. The uterus is normal in size with thickening of the endometrium measuring approximately 0.9 centimeters. Moderate hiatal hernia. No evidence of bowel obstruction. Acute, uncomplicated diverticulitis of the sigmoid colon. No pericolonic abscess. Small volume free fluid in the dependent aspect of the pelvis. No free air. SOFT TISSUE/MUSCULOSKELETAL: No acute fracture or malalignment. No suspicious osseous lesions. IMPRESSION: 1. Acute, uncomplicated diverticulitis of the sigmoid colon. No pericolonic abscess. 2. Small volume fluid in the dependent aspect of the pelvis, likely secondary to inflammatory changes of the colon. 3. The endometrium appears thickened measuring approximately 0.9 centimeters. Recommend nonemergent/outpatient pelvic ultrasound for further assessment. 4. Right thyroid nodule measuring 2.0 centimeters. Recommend dedicated thyroid ultrasound if not previously performed. 5. There is a subpleural, part solid and part ground-glass nodular opacity seen in the lateral aspect of the right upper lobe. Recommend nonemergent PET-CT for further assessment. Please note that all CT scans at this facility use dose modulation, iterative reconstruction, and/or weight-based dosing when appropriate to reduce radiation dose to as low as reasonably achievable. Dictated by Abrahan Weaver MD @ 03/28/2023 1:17:32 PM (Electronically Signed)
[2023-03-28] MEDS: PANTOPRAZOLE SODIUM 40 MG INJ IVP (12:33)
[2023-03-28] MEDS: KETOROLAC 15 MG/ML inj IVP (13:59)
[2023-03-28] MEDS: AMPICILLIN/SULBACTAM 3 GM in 0.9 % SODIUM CHLORIDE Mini-bag 100 ML IVPB (13:59)
[2023-03-28 14:09] LABS: Troponin, Point-of-Care* 0.01 ng/ml (0.01-0.04)
== END 2023-03-28 14:49 | disposition home or self-care (01) ==
PROVIDERS: Emergency Provider Family Medicine; PCP Internal Medicine
DX: K57.92 Diverticulitis of intestine, part unspecified, without perforation or abscess without bleeding (principal)
CPT/HCPCS: 36415; 71045; 71260; 74177; 80053; 83605; 83690; 83880; 84484; 85025; 85379; 86140; 93005; 94761; 96365; 96375; 99284; 99285; A9270; C9113; J0295; J1885; Q9967

== ENCOUNTER 2023-04-11 08:00 | Outpatient (CLI) | payer MEDICARE, BC, SELFPAY ==
--- OUTSIDE RECORDS SUMMARY | 2023-04-11 08:04 | XMS_ITS | Clinical Summary ---
Author Name Unknown Organization [facility] Address [place], [place] [address] Care Team Providers Care Sport Shoe Spike Assembler Name Role Phone Soumya Chen MD Primary Care Provider [phone] Allergies Active Allergy Reactions Criticality Noted Date Comments Glimepiride Vestibular Toxicity 03/05/2022 Glucosamine Myalgia 03/05/2022 Iaclacq-Mvx-Xpc Reductase Inhibitors Myalgia 12/12/2021 Medications Medication Sig [...] Comments Blood Pressure 141/76 03/07/2022 7:00 PM ASSET PROTECTION SPECIALIST Pulse 82 03/07/2022 7:00 PM ASSET PROTECTION SPECIALIST Temperature 36.5 ??C (97.7 ??F) 03/07/2022 7:00 PM CS T Respiratory Rate 16 03/07/2022 7:00 PM ASSET PROTECTION SPECIALIST Oxygen Saturation 95% 03/07/2022 7:15 PM ASSET PROTECTION SPECIALIST Inhaled Oxygen Concentration - - Weight 90.7 kg (200 lb) 03/07/2022 11:40 AM ASSET PROTECTION SPECIALIST Height 168.9 cm (5' 6.5) 03/07/2022 11:40 AM CS T Body Mass Index 31.8 03/07/2022 11:40 AM ASSET PROTECTION SPECIALIST Plan of Treatment Health Maintenance Due Date [...] Preferences, Provider to review later Care Teams Sport Shoe Spike Assembler Relationship Specialty Start Date End Date Soumya Chen MD [address] [place] [id number] PCP - General Internal Medicine 02/15/22
--- NOTE | 2023-04-11 08:15 | US_ITS ---
Final Report Patient: CAN DC Facility:?[facility] Patient ID:?[id number] Site Patient ID:?[id number]. Site :?1955 Study:?US Pelvis -04/11/2023 8:45:35 AM Ordering Physician:LUIS DAVID Final Report: INDICATION: Abnormal diagnostic findings COMPARISON: none TECHNIQUE: 2D nash scale and color Doppler images were acquired of the pelvis using a transabdominal and transvaginal approach. FINDINGS: Sonographic images demonstrate a normal size and smooth outer contour of the uterus. Uterus measures 5.6 cm in length by 2.6 cm in AP diameter by 3.5 cm in transverse dimension. The myometrium has a normal uniform echotexture. The endometrial lining measures 9 millimeters. The endometrium is heterogeneous with areas of fluid versus cystic change present. Increased vascularity associated with the endometrium. The ovaries are not visualized. There are no suspicious fluid collections within the cul-de-sac. IMPRESSION: Thickened and heterogeneous endometrium measuring 9 millimeters with associated cystic change/fluid and increased vascularity. No uterine fibroid. Dictated by Dario Fernanedz MD @ 04/11/2023 10:42:09 AM (Electronic Signature)
== END 2023-04-11 08:01 | disposition home or self-care (01) ==
LOC: US 08:00
PROVIDERS: PCP Internal Medicine; Visit Provider Internal Medicine
DX: R93.89 Abnormal findings on diagnostic imaging of other specified body structures (principal)
CPT/HCPCS: 76830; 76856

== ENCOUNTER 2023-04-24 08:42 | Outpatient (CLI) | payer MEDICARE, BC, SELFPAY ==
--- NOTE | 2023-04-24 09:00 | PE_ITS ---
[facility] [address] [facility] [address] Phone:?[phone] Fax:?[phone] Referring Physician Information: Soumya Chen M.D. [address] [facility] [address] Phone:?[phone] Fax:?[phone] Patient:Venessa Tomlin D.O.B:?1955 Sex:?Female Phone:?[phone] [facility] MRN:?[id number] Exam Date:?04/24/2023 EXAM: PET/CT SCAN MID-ORBITS TO PROXIMAL THIGHS CLINICAL INFORMATION: Pulmonary nodule. COMPARISON: Chest CT 07/15/2016 and 03/28/2023, [facility]. TECHNICAL INFORMATION: Spiral acquisition of data was obtained from the mid orbits to the proximal thighs with reconstruction of 3.75 mm thick images at 3.[address] data was used for attenuation correction. PET scanning was performed through the same anatomic range 57 minutes following administration of 12.4 mCi of 18-FDG delivered intravenously. The patient's glucose at the time of the injection was 155 mg/dL. PET, CT and PET/CT fusion images are interpreted using a computer viewing workstation. SUV max liver 2.85; BMI normalization method. INTERPRETATION: Head and Neck: Physiologic intracranial uptake. Chest: Approximately 21 mm subpleural nodular opacity posterior lateral right upper lobe, without significant change in size since 2017, SUV max 1.55. Given relative stability since 2017, benign etiology is highly likely. Six-month follow-up noncontrast chest CT evaluation is suggested. No additional lung nodule or infiltrate. No pleural or pericardial effusion. Hilum, mediastinum and axilla: No pathologic adenopathy. Moderate-sized hiatal hernia. Abdomen, Pelvis and Proximal Thighs: No liver lesion. No bile duct dilatation. Gallbladder is absent. The adrenal glands, kidneys, spleen are unremarkable. Normal caliber abdominal aorta with minimal atherosclerotic calcification. No GI tract abnormality. No pelvic mass, hernia, adenopathy or fluid collection. MUSCULOSKELETAL: No focal lesion. CONCLUSION: 1. 21 mm subpleural nodular opacity lateral right upper lobe without significant change since 2017. Very minimal FDG uptake, SUV max 1.55. Lesion highly likely benign. Six-month follow-up noncontrast chest CT evaluation is suggested. No additional PET CT abnormality is identified. Electronically signed on 04/25/2023 1:53:00 PM by Davide Banuelos M.D.
== END 2023-04-24 08:43 | disposition home or self-care (01) ==
LOC: RAD 08:42
PROVIDERS: PCP Internal Medicine; Visit Provider Internal Medicine
DX: R91.8 Other nonspecific abnormal finding of lung field (principal)
CPT/HCPCS: 78815; A9552

== ENCOUNTER 2023-05-02 11:00 | Outpatient (CLI) | payer MEDICARE, BC, SELFPAY | END 2023-05-02 11:01 | disposition home or self-care (01) | LOC: NFLDREF 11:01 | PROVIDERS: PCP Internal Medicine; Visit Provider Obstetrics & Gynecology | DX: R30.0 Dysuria (principal) | CPT/HCPCS: 87086; 87186 ==

== ENCOUNTER 2023-05-15 10:02 | Outpatient (CLI) | payer MEDICARE, BC, SELFPAY | END 2023-05-15 10:03 | disposition home or self-care (01) | LOC: NFLDREF 10:03 | PROVIDERS: PCP Internal Medicine; Visit Provider Internal Medicine | DX: Z01.818 Encounter for other preprocedural examination (principal) | CPT/HCPCS: 80053 ==

== ENCOUNTER 2023-05-20 06:23 | Day surgery (SDC) | payer MEDICARE, BC, SELFPAY ==
[2023-05-20] MEDS: LACTATED RINGERS 1000 ML 1,000 ML 100 ML IV (06:15)
[2023-05-20 06:35] VITALS: BP 139/86; PULSE 70; RESP 18; TEMP 36.5; O2SAT 96; BMI 30.5
[2023-05-20] MEDS: SODIUM CHLORIDE 0.9 % (FLUSH) 10 ML SYRINGE IVF (07:00)
--- NOTE | 2023-05-20 07:19 | W.ANESCHARGE ---
Anesthesia Charges Start Date/Time Anesthesia Start Date: 05/20/23 Anesthesia Start Time: 07:38 Stop Date/Time Anesthesia Stop Date: 05/20/23 Anesthesia Stop Time: 08:26
[2023-05-20] MEDS: BUPIVACAINE 0.5% 30 ML INJECTION (08:00)
--- NOTE | 2023-05-20 08:10 | W.ANESCHARGE ---
Anesthesia Charges Start Date/Time Anesthesia Start Date: 05/20/23 Anesthesia Start Time: 07:38 Stop Date/Time Anesthesia Stop Date: 05/20/23 Anesthesia Stop Time: 08:26
--- NOTE | 2023-05-20 08:16 | W.PM.H&PU ---
History & Physical Update History & Physical Update H&P Reviewed and patient assessed: No changes noted
--- NOTE | 2023-05-20 08:16 | W.PM.GYNPROC ---
Procedure Note Time Seen by Provider: 08:16 Date of procedure: 05/20/23 Pre-op diagnosis: Thickened endometrial stripe Post-op diagnosis: same Procedure: Hysteroscopy, dilation and curettage, polypectomy (Truclear) Anesthesia: MAC Complications: None Surgeon: Erica Ochoa MD Estimated blood loss (mL): 5 IV fluids (mL): 600 Pathology: specimen obtained, sent to pathology Condition: stable Disposition: same day Findings: 1cm endometrial polyp vs mass at the right uterine fundus, tissue is soft and pale pink in appearance with some increased vascularity at the base Remainder of endometrium is atrophic Unremarkable bilateral tubal ostia Procedure Description: Procedure in detail: Patient was taken to the operating room with IV running. She was positioned in dorsal lithotomy position with her legs fully supported in Yellofin stirrups. Monitored anesthesia care was administered. She was prepped and draped in the usual sterile fashion. Exam under anesthesia was performed for the above-noted findings. Speculum was inserted. Cervix visualized and grasped along the anterior lip with a single-tooth tenaculum. Paracervical block was performed with 0.5% bupivacaine plain, total of 20 mL injected. Cervix was noted to have pinpoint external os, easily dilated with use of an os finder. Cervical dilators were then utilized to continue dilation to accommodate the TRUCLEAR hysteroscope. This was assembled with saline inflow and outflow in place. The line was flushed of bubbles. The hysteroscope was advanced through the cervix into the endometrial cavity for the above noted findings. The tissue morcellator was then inserted through the operating channel. Window lock was performed. Under direct visualization, the right fundal polyp/mass was easily resected in its entirety. No other focal pathology was visualized, remainder of endometrial cavity was atrophic. The hysteroscope and morcellator were then removed from the uterus. Tenaculum was removed from the anterior lip of cervix. Hemostasis was noted. Patient tolerated procedure well. She was taken to recovery area in stable condition. Surgical debrief performed. EBL 5cc, Fluid deficit 115cc, no urine output, IVF 600cc. Specimen is endometrial curettings, sent for pathologic evaluation.
[2023-05-20 08:25] VITALS: BP 102/66; PULSE 64; RESP 18; TEMP 36.2; O2SAT 95
[2023-05-20 08:30] VITALS: BP 110/62; PULSE 51; RESP 18; O2SAT 97
[2023-05-20 08:45] VITALS: BP 118/68; PULSE 52; RESP 17; O2SAT 97
== END 2023-05-20 09:05 | disposition home or self-care (01) ==
PROVIDERS: PCP Internal Medicine; Visit Provider Obstetrics & Gynecology
PROC: 0UDB8ZZ Extraction of Endometrium, Via Natural or Artificial Opening Endoscopic (ICD-10-PCS; CPT 58558; principal; 2023-05-20 07:45)
DX: N84.0 Polyp of corpus uteri (principal); R93.89 Abnormal findings on diagnostic imaging of other specified body structures; E11.9 Type 2 diabetes mellitus without complications
CPT/HCPCS: 58558; 00952; 36415; 82962; 85018; 86850; 86900; 86901; 88305; J0665; J1885; J2405; J2704; J3010; J7120

== ENCOUNTER 2023-07-09 09:35 | Outpatient (CLI) | payer MEDICARE, BC, SELFPAY ==
--- OUTSIDE RECORDS SUMMARY | 2023-07-10 05:23 | XMS_ITS | Clinical Summary ---
Author Name Unknown Organization [facility] Address [place], [place] [address] Care Team Providers Care Bottom Steep Tender Name Role Phone Soumya Chen MD Primary Care Provider [phone]- [phone] Allergies Active Allergy Reactions Criticality Noted Date Comments Glimepiride Vestibular Toxicity 03/05/2022 Glucosamine Myalgia 03/05/2022 Rhinewk-Pkm-Luw Reductase Inhibitors Myalgia 12/12/2021 Medications Medication Sig Dispensed Refills Start Date End Date Status Accu-Chek Lori Plus test strp strip USE TO TEST TWICE DAILY 10/19/2021 Active hydroCHLOROthiazide 12.5 mg capsule Take 12.5 mg by mouth once daily. 09/24/2021 Active Accu-Chek Softclix Lancets USE TO TEST TWICE DAILY. 10/17/2021 Active losartan (COZAAR) 25 mg tablet Take 25 mg by mouth once daily in the evening. 09/24/2021 Active metFORMIN (GLUCOPHAGE) 500 mg tablet Take 500 mg by mouth two times daily with meals. 09/24/2021 Active esomeprazole (NEXIUM) 20 mg capsule Take 20 mg by mouth two times daily. 0 12/12/2021 Active cholecalciferol (VITAMIN D3) 2,000 unit capsule Take 2,000 units by mouth once daily. Active cyanocobalamin (VITAMIN B12) 1,000 mcg tablet Take 1,000 mcg by mouth once daily. Active lysine 500 mg tab Take 500 mg by mouth once daily. Active magnesium oxide (MAG-OX 400) 400 mg tablet Take 400 mg by mouth once daily. Active melatonin 5 mg capsule Take 5 mg by mouth at bedtime if needed. Active psyllium husk, with sugar, 2.5 gram wafr Take by mouth once daily. Active Biotin 1 mg tablet Take 1 mg by mouth once daily. Active Aluminum Hydrox-Magnesium Carb 254-237.5 mg/5 mL susp Take 1 mL by mouth each time if needed. Active FISH OIL-DHA-EPA ORAL Take by mouth. Active sennosides-docusate (SENOKOT S) (8.6-50 mg) tabletIndications:Gastr oesophageal reflux disease, unspecified whether esophagitis present Take 1 Tablet by mouth 2 times daily if needed for Constipation. 20 Tablet 03/07/2022 Active oxyCODONE (ROXICODONE) 5 mg immediate release tabletIndications:Gastr oesophageal reflux disease, unspecified whether esophagitis present,Hiatal hernia Take 1 Tablet (5 mg) by mouth every 4 hours if needed for Pain. 10 Tablet 03/07/2022 Active ondansetron (ZOFRAN ODT) 4 mg disintegrating tabletIndications:Gastr oesophageal reflux disease, unspecified whether esophagitis present Place 1 Tablet (4 mg) on the tongue every 8 hours if needed for Nausea/Vomiting . 20 Tablet 03/07/2022 Active psyllium seed (METAMUCIL SUGAR FREE ORAL) Take by mouth. Active famotidine (Pepcid) 40 mg tabletIndications:Gastr oesophageal reflux disease, unspecified whether esophagitis present Take 1 Tablet (40 mg) by mouth at bedtime. 60 Tablet 2 04/15/2023 Active Active Problems Problem Noted Date Diagnosed Date Hiatal hernia GERD (gastroesophageal reflux disease) Encounters Date Type Department Care Team Description 05/20/2023 Lab Requisition [facility] [phone] Unknown, Doctor 04/24/2023 Telephone [facility] [address] [facility] [address] [place] [address] Sean Green MD Prior Authorization (famotidine (Pepcid) 40 mg tablet - EXCLUDED) 04/15/2023 10:00 AM BUSINESS MANAGER [employer] Office Visit [facility] [address] [place] [address] Sean Green MD Consult (GERD) 04/15/2023 7:43 AM BUSINESS MANAGER [employer] - 04/15/2023 11:59 PM BUSINESS MANAGER [employer]ITY Hospital Encounter [facility] [address] [place] [address] Sean Green MD Status post hernia repair 04/15/2023 Telephone [facility] [address] [place] [address] Sean Green MD RDC Care Coordination 04/15/2023 Travel 04/14/2023 Telephone [facility] [address] [facility] [address] [place] [address] Sean Green MD RDC Pre Visit from Last 3 Months Social History Tobacco Use Types Packs/Day Years [...] Sign Reading Time Taken Comments Blood Pressure 122/76 04/15/2023 9:55 AM BUSINESS MANAGER [employer] Pulse 63 04/15/2023 9:55 AM BUSINESS MANAGER [employer] Temperature 36.5 ??C (97.7 ??F) 04/15/2023 9:55 AM CS T Respiratory Rate 16 04/15/2023 9:55 AM BUSINESS MANAGER [employer]IVERSITY Oxygen Saturation 97% 04/15/2023 9:55 AM BUSINESS MANAGER [employer] Inhaled Oxygen Concentration - - Weight 87.8 kg (193 lb 9.6 oz) 04/15/2023 9:55 A M BUSINESS MANAGER [employer] Height 168.9 cm (5' 6.5) 03/07/2022 11:40 AM CS T Body Mass Index 30.78 03/07/2022 11:40 AM BUSINESS MANAGER [employer] Plan of Treatment Health Maintenance Due Date [...] 65+ (1 of 1 - PCV) 05/12/2019 BMI (ht and wt on same day) for age 18+ 12/12/2022 12/12/2021 Influenza for age 65+ 10/26/2023 COVID-19 vaccine series Completed 12/06/19 23, 07/02/2022, 11/27/2021, Additional history exists Procedures Procedure Name Priority Date/Time Associated Diagnosis Comments LAB TRACKING EVENT Routine 05/20/2023 8: 16 AM CDT PATH TISSUE EXAM Routine 05/20/2023 8:16 AM CDT XR ESOPHAGUS COLTON 04/15/2023 8:18 AM BUSINESS MANAGER [employer] Status post hernia repair from Last 3 Months Results * LAB TRACKING EVENT (05/20/2023 8:16 AM CDT) Other (Other) Client Collect / Unknown 05/20/2023 8:16 AM CDT 05/20/2023 4:17 PM CDT Doctor Unknown LAB BILL ONLY [facility] [address] [place] [address], * PATH TISSUE EXAM (05/20/2023 8:16 AM CDT) Case Report Pathology Report ?Case: [id number] ? Authorizing Provider: ??Unknown, Doctor ?Collected: ? 05/20/2023 0816 ? Ordering Location: ? [facility] ?Received: ?05/20/2023 1756 ? Pathologist: ? Tiffanie Medrano MD ? Specimen: ?Endometrial ? 05/21/2023 2:48 PM CDT [facility] Final Diagnosis A) ENDOMETRIUM, CURETTAGE: 1. Fragments of benign endometrial polyp(s) 2. Background inactive endometrium 3. Negative for atypia and malignancy 05/21/2023 2:48 PM CDT [facility] Clinical Information Thickened endometrium 05/21/2023 2:48 PM CDT [facility] Gross Description A) Received in formalin, labeled with the patient's name and endometrial curettings, is a 2.4 x 1.2 x 0.3 cm aggregate of morcellated myles tissue. The specimen is entirely submitted in 1 cassette. EKW 05/20/2023 05/21/2023 2:48 PM CDT [facility] Microscopic Description The final diagnosis is based on microscopic examination of appropriate sections of all specimens. 05/21/2023 2:48 PM CDT [facility] Additional Information Interpreted at [facility] - [address], [place] [address] 05/21/2023 2:48 PM CDT [facility] Other SPECIMEN FROM ENDOMETRIUM / Unknown 05/20/2023 8:16 AM CDT 05/20/2023 5:56 PM CDT Doctor Unknown PATHOLOGY/CYTOLOGY [facility] [address] [place] [address], [place] * XR ESOPHAGUS (04/15/2023 8:18 AM BUSINESS MANAGER [employer]) Anatomical Region Laterality Modality Esophagus Digital Radiogra phy Impressions 04/15/2023 8:47 AM BUSINESS MANAGER [employer] Probable previous Ulices fundoplication. There is contrast trapping within the fundoplication and a possible small recurrent hiatal hernia are slip with herniation above the level of the fundoplication. Transient restriction but eventual passage of 13 mm barium tablet through the GE junction. Mild esophageal dysmotility. Narrative 04/15/2023 8:47 AM BUSINESS MANAGER [employer] INDICATION Dysphagia TECHNIQUE Single contrast esophagram. Fluoroscopy time: 1 minute 24 seconds COMPARISON No comparison FINDINGS Esophagus: Normal caliber. No high-grade stricture or intraluminal mass. GE junction: There is a small sliding hiatal hernia. ??There is transient retention of a 13 mm barium tablet which eventually passes to the stomach. Contrast is present which is presumably within a portion of the stomach from an antireflux procedure such as a fundoplication. ??The posterior component is larger almost diverticulum in appearance. ??It appears circumferential and is noted on both AP and lateral projections. Motility: Mild dysmotility. Miscellaneous: Stomach empties normally. ??Gallbladder surgical clips are present. Sean Green MD FLUOROSCOPY from Last 3 Months Advance Directives * Full Code (Latest Code Status on File) Date Activated Date Inactivated Comments 03/07/2022 11:18 AM 03/07/2022 10:31 PM Question Answer Comments Code Status Discussion: Unable to Assess Preferences, Provider to review later Care Teams Bottom Steep Tender Relationship Specialty Start Date End Date Soumya Chen MD [address] [place] [address] PCP - General Internal Medicine 02/15/22
--- OUTSIDE RECORDS SUMMARY | 2023-07-10 05:23 | XMS_ITS | Continuity of Care Document ---
Author Name Unknown Organization [facility] Address [address] [address] [place] [address] Phone Care Team Providers Care Port Traffic Manager Name Role Phone Myranda Dumont CRNA Unavailable [...] Diagnoses Date Provider Providers Copied on Encounter [facility], [address] [address], [place], [place], [id number], [place] tel:[phone] [facility] No Information 2 Julia Motaesa. [address] [facility] [facility] [address], [place], [place], [id number], [place]. tel:[phone] Referring Provider: Marcela Rodriguez, [address] [facility] [address], [place], [address] . tel:[phone] [facility] [address] [address], [place], [place], [id number], [place] tel:[phone] [facility] GI Symptoms or Concerns (chief complaint) Esophageal strictureHiata l herniaGastric polypsGastriti s without bleeding, unspecified chronicity, unspecified gastritis typeEsophageal obstructionPol yp of stomach and duodenumDiaphr agmatic hernia without obstruction or gangreneGastri tis, unspecified, without bleeding 2 Susie Medrano. [address] [facility], [place], [place], [id number], [place]. tel:[phone] Sean Green MD. tel:[phone] erring Provider: Sean Garcia, [address], [place], [address]. tel:[phone] [facility], [address] [address], [place], [place], [id number], [place] tel:[phone] No Information No Information Referring Provider: Sean Garcia, [address], [facility] [place], [address]. tel:[phone] [facility], [address] [address], [place], [place], [address], [place] tel:[phone] [facility] Esoph Stricture/scha tzki RingHiatal HerniaGastriti s W/o BleedGastric Polyp-benignGa stritis W/o BleedEsoph Stricture/scha tzki RingGastric Polyp-benign 3 Shaheed Lester. [address] [facility], [facility] [address], [place], [place], [id number], [place]. tel:[phone] Referring Provider: Prakash Rivera, [address], [place], [address]. tel:[phone] Offic Cons New/estab Mod [facility], [address] [address], [place], [place], [id number], [place] tel:[phone] [facility] Chest pain (chief complaint) Chest Pain NosHeartburn 3 Shaheed Lester. [address] [facility], [facility] [address], [place], [place], [address], [place]. tel:[phone] Referring Provider: Prakash Rivera, [address], [place], [address]. tel:[phone] Family History Family Member Type Diagnosis Age [...] libertarian ID Authoriza tion(s) Medicare NGS MB [id number] [employer] [id number] Social History Type Description Quantity Date Captured Comments Sex Female Smoking Status No Information Chief Complaint And Reason For Visit No Information Reason For Referral Reason For Referral No Information History Of Present Illness Encounter [...]
== END 2023-07-09 09:36 | disposition home or self-care (01) ==
LOC: NFLDREF 07-10 05:22
PROVIDERS: PCP Internal Medicine; Referring Provider Internal Medicine; Visit Provider Internal Medicine
DX: E11.9 Type 2 diabetes mellitus without complications (principal)
CPT/HCPCS: 80053; 80061; 82043; 82570

== ENCOUNTER 2023-10-28 09:00 | Outpatient (CLI) | payer MEDICARE, BC, SELFPAY ==
--- OUTSIDE RECORDS SUMMARY | 2023-10-28 09:05 | XMS_ITS | Clinical Summary ---
Author Organization [employer] [facility] Address [place], [place] [address] Care Team Providers Care Attending Physician Name Role Phone Soumya Chen MD Primary Care Provider [phone]- [phone] Allergies Active Allergy Reactions Criticality Noted Date Comments Glimepiride Vestibular Toxicity 03/05/2022 Glucosamine Myalgia 03/05/2022 Giveebb-Sqi-Yaf Reductase Inhibitors Myalgia 12/12/2021 Medications Medication Sig [...] Comments Blood Pressure 122/76 04/15/2023 9:55 AM SCRUB WHEEL OPERATOR Pulse 63 04/15/2023 9:55 AM SCRUB WHEEL OPERATOR Temperature 36.5 ??C (97.7 ??F) 04/15/2023 9:55 AM CS T Respiratory Rate 16 04/15/2023 9:55 AM SCRUB WHEEL OPERATOR Oxygen Saturation 97% 04/15/2023 9:55 AM SCRUB WHEEL OPERATOR Inhaled Oxygen Concentration - - Weight 87.8 kg (193 lb 9.6 oz) 04/15/2023 9:55 A M SCRUB WHEEL OPERATOR Height 168.9 cm (5' 6.5) 03/07/2022 11:40 AM CS T Body Mass Index 30.78 03/07/2022 11:40 AM SCRUB WHEEL OPERATOR Plan of Treatment Health Maintenance Due Date [...] same day) for age 18+ 12/12/2022 12/12/2021 COVID-19 vaccine series (2022-24 season) 2023 12/05/2022, 07/02/2022, 11/27/2021, Additional history exists Influenza for age 65+ 10/26/2023 Advance Directives * Full Code (Latest Code Status on File) Date Activated Date Inactivated Comments 03/07/2022 11:18 AM 03/07/2022 10:31 PM Question Answer Comments Code Status Discussion: Unable to Assess Preferences, Provider to review later Care Teams Attending Physician Relationship Specialty Start Date End Date Soumya Chen MD [address] [place] [id number] PCP - General Internal Medicine 02/15/22
--- NOTE | 2023-10-28 09:15 | CRLHL7_ITS ---
For Patients: As a result of the Century Cures Act, medical imaging exams and procedure reports are released immediately into your electronic medical record. You may view this report before your referring provider. If you have questions, please contact your health care provider. BILATERAL SCREENING MAMMOGRAM WITH COMPUTER-AIDED DETECTION AND TOMOSYNTHESIS TECHNIQUE: CC and MLO views were obtained. These mammographic images have been obtained using full-field digital technique. These mammographic images were interpreted with the benefit of computer-aided detection. Breast Tomosynthesis was used in this interpretation. COMPARISON FILM: 06/03/22, 08/02/20, 10/09/18. FINDINGS: There are scattered areas of fibroglandular density IMPRESSION: There is no radiographic evidence for malignancy. ASSESSMENT: BI-RADS Category 1: Negative RECOMMENDATION: Routine screening mammogram in 1 year. A lay language report of this examination will be provided to the patient. Dario Fernandez M.D. Diagnostic Radiologist [email or web address] DIANA/Dictated by: Dario Fernandez MD @ 10/28/2023 9:41:00 AM (Electronically Signed)
== END 2023-10-28 09:01 | disposition home or self-care (01) ==
LOC: MAMMO 09:02
PROVIDERS: PCP Internal Medicine; Visit Provider Internal Medicine
DX: Z12.31 Encounter for screening mammogram for malignant neoplasm of breast (principal)
CPT/HCPCS: 77063; 77067

== ENCOUNTER 2023-11-04 10:29 | Outpatient (CLI) | payer MEDICARE, BC, SELFPAY ==
--- OUTSIDE RECORDS SUMMARY | 2023-11-04 10:33 | XMS_ITS | Clinical Summary ---
Author Organization [employer] [facility] [employer] Address [place], [place] [address] Care Team Providers Care Photoengraving Proofer Apprentice Name Role Phone Soumya Chen MD Primary Care Provider [phone]- [phone] Allergies Active Allergy Reactions Criticality Noted Date Comments Glimepiride Vestibular Toxicity 03/05/2022 Glucosamine Myalgia 03/05/2022 Dogxfzg-Bim-Vgz Reductase Inhibitors Myalgia 12/12/2021 Medications Medication Sig [...] Comments Blood Pressure 122/76 04/15/2023 9:55 AM HEALTHCARE FINANCIAL ANALYST Pulse 63 04/15/2023 9:55 AM HEALTHCARE FINANCIAL ANALYST Temperature 36.5 ??C (97.7 ??F) 04/15/2023 9:55 AM CS T Respiratory Rate 16 04/15/2023 9:55 AM HEALTHCARE FINANCIAL ANALYST Oxygen Saturation 97% 04/15/2023 9:55 AM HEALTHCARE FINANCIAL ANALYST Inhaled Oxygen Concentration - - Weight 87.8 kg (193 lb 9.6 oz) 04/15/2023 9:55 A M HEALTHCARE FINANCIAL ANALYST Height 168.9 cm (5' 6.5) 03/07/2022 11:40 AM CS T Body Mass Index 30.78 03/07/2022 11:40 AM HEALTHCARE FINANCIAL ANALYST Plan of Treatment Health Maintenance Due Date [...] Preferences, Provider to review later Care Teams Photoengraving Proofer Apprentice Relationship Specialty Start Date End Date Soumya Chen MD [address] [place] [id number] PCP - General Internal Medicine 02/15/22
--- NOTE | 2023-11-04 11:00 | CRLHL7_ITS ---
For Patients: As a result of the Century Cures Act, medical imaging exams and procedure reports are released immediately into your electronic medical record. You may view this report before your referring provider. If you have questions, please contact your health care provider. INDICATION: Abdominal pain. TECHNIQUE: Multiplanar CT examination of the abdomen and pelvis was performed after the administration of Isovue 370 mL Omnipaque 350 intravenous contrast. COMPARISON: CT abdomen pelvis 03/28/2023. FINDINGS: Lower chest: Please refer to separately dictated report of the concurrently CT of the chest for full discussion of the right upper lobe mass. Liver: Unremarkable. Gallbladder: Cholecystectomy. Biliary: Unremarkable. Pancreas: Mildly atrophic pancreatic body. Otherwise, unremarkable. Spleen: Unremarkable. Adrenal glands: Unremarkable. Renal/ureters/bladder: Normal in size and symmetrically enhancing. No obstructive uropathy. No hydronephrosis or obstructive urinary calculi. No suspicious renal masses. The ureters appear unremarkable. The bladder is within normal limits. Pelvis: Unremarkable uterus. No adnexal masses. Gastrointestinal: Small hiatal hernia. No bowel wall thickening or bowel obstruction. Normal appendix. Colonic diverticulosis without pericolonic fat stranding to suggest acute diverticulitis. Moderate colonic stool burden. Vasculature: No aortic aneurysm. The portal vein remains patent. Mild atherosclerotic calcifications. Lymph nodes: No pathologic lymphadenopathy by size criteria. Peritoneum: No free fluid or pneumoperitoneum. No drainable fluid collections. Abdominal wall/soft tissues: Unremarkable. Bones: No acute osseous abnormalities. Mild degenerative changes of the thoracolumbar spine. No suspicious lytic or blastic lesions. IMPRESSION: 1. Colonic diverticulosis without evidence of acute diverticulitis. 2. Small hiatal hernia. 3. Otherwise, no acute abdominopelvic pathology. Please note that all CT scans at this facility use dose modulation, iterative reconstruction, and/or weight-based dosing when appropriate to reduce radiation dose to as low as reasonably achievable. Dictated by Sylvester Rojas MD @ 11/04/2023 6:08:01 PM (Electronically Signed)
[2023-11-04 11:21] LABS: Creatinine* 0.8 mg/dL (0.5-1.5); Estimated Glomerular Filt Rate 80 ml/min
--- NOTE | 2023-11-04 11:30 | CRLHL7_ITS ---
For Patients: As a result of the Century Cures Act, medical imaging exams and procedure reports are released immediately into your electronic medical record. You may view this report before your referring provider. If you have questions, please contact your health care provider. INDICATION: Follow-up right upper lobe pulmonary mass. TECHNIQUE: Multiplanar CT examination of the chest was performed without the use of intravenous contrast. COMPARISON: CT chest abdomen pelvis 03/28/2023. FINDINGS: Lower neck: The visualized thyroid is unremarkable. Cardiovascular: Heart size is normal. Thoracic aorta and pulmonary artery are normal in caliber. Mild atherosclerotic calcifications of the aortic arch. Coronary arterial calcifications. Mediastinum and lymph nodes: Unremarkable. No pathologic mediastinal or hilar lymphadenopathy by size criteria. Lungs: Redemonstrated right upper lobe sub solid mass measuring 2.3 x 1.0 cm, slightly increased in size since the prior CT from 03/28/2023. The solid component of this nodule measures approximately 8 mm. No new suspicious pulmonary nodules identified. No focal consolidation. Linear bandlike opacifications of the lungs bilaterally, likely subsegmental atelectasis and/or scarring. Airways: The trachea remains patent and midline. Mild diffuse peribronchial wall thickening. Pleura: No pleural effusions or pneumothorax Chest wall: Unremarkable. Prominent axillary lymph nodes that do not meet size criteria for lymphadenopathy. Bones: No acute osseous abnormalities. Mild degenerative changes of the thoracic spine. No suspicious lytic or blastic lesions. Upper abdomen: No acute findings in the visualized upper abdomen. Cholecystectomy. IMPRESSION: 1. Slight interval increase in the size of the subsolid right upper lobe mass measuring 2.3 x 1.0 cm, with 8 mm solid component. Persistent subsolid nodules with solid components greater than or equal to 6 mm should be considered highly suspicious, per Fleischner society guidelines. No intrathoracic lymphadenopathy. Recommend further evaluation with PET-CT or histologic tissue analysis. 2. Coronary arterial calcifications. Please note that all CT scans at this facility use dose modulation, iterative reconstruction, and/or weight-based dosing when appropriate to reduce radiation dose to as low as reasonably achievable. Dictated by Sylvester Rojas MD @ 11/04/2023 6:04:36 PM (Electronically Signed)
== END 2023-11-04 10:30 | disposition home or self-care (01) ==
PROVIDERS: PCP Internal Medicine; Visit Provider Surgery
DX: R10.9 Unspecified abdominal pain (principal); K57.92 Diverticulitis of intestine, part unspecified, without perforation or abscess without bleeding; K44.9 Diaphragmatic hernia without obstruction or gangrene
CPT/HCPCS: 36415; 71250; 74177; 82565; Q9967

== ENCOUNTER 2023-11-14 08:20 | Outpatient (CLI) | payer MEDICARE, BC, SELFPAY ==
--- OUTSIDE RECORDS SUMMARY | 2023-11-14 08:23 | XMS_ITS | Clinical Summary ---
Author Organization [employer] [facility] Address [place], [place] [address] Care Team Providers Care Welding Equipment Repairer Name Role Phone Soumya Chen MD Primary Care Provider [phone]- [phone] Allergies Active Allergy Reactions Criticality Noted Date Comments Glimepiride Vestibular Toxicity 03/05/2022 Glucosamine Myalgia 03/05/2022 Nlqudlv-Gfy-Vwa Reductase Inhibitors Myalgia 12/12/2021 Medications Medication Sig [...] Comments Blood Pressure 122/76 04/15/2023 9:55 AM RECYCLING ATTENDANT Pulse 63 04/15/2023 9:55 AM RECYCLING ATTENDANT Temperature 36.5 ??C (97.7 ??F) 04/15/2023 9:55 AM CS T Respiratory Rate 16 04/15/2023 9:55 AM RECYCLING ATTENDANT Oxygen Saturation 97% 04/15/2023 9:55 AM RECYCLING ATTENDANT Inhaled Oxygen Concentration - - Weight 87.8 kg (193 lb 9.6 oz) 04/15/2023 9:55 A M RECYCLING ATTENDANT Height 168.9 cm (5' 6.5) 03/07/2022 11:40 AM CS T Body Mass Index 30.78 03/07/2022 11:40 AM RECYCLING ATTENDANT Plan of Treatment Health Maintenance Due Date [...] Preferences, Provider to review later Care Teams Welding Equipment Repairer Relationship Specialty Start Date End Date Soumya Chen MD [address] [place] [id number] PCP - General Internal Medicine 02/15/22
--- NOTE | 2023-11-14 08:30 | CRLHL7_ITS ---
For Patients: As a result of the Century Cures Act, medical imaging exams and procedure reports are released immediately into your electronic medical record. You may view this report before your referring provider. If you have questions, please contact your health care provider. Technique: Routine double-contrast barium enema performed. Fluoroscopy time 3 minutes 36 seconds. Indication: Diverticulitis Comparison: CT 11/04/2023 Findings: Diffuse colonic diverticulosis. No obstruction. No acute inflammation. No fistula. No suspicious mass. Impression: Diffuse colonic diverticulosis. Dictated by Dario Fernandez MD @ 11/14/2023 12:22:04 PM (Electronically Signed)
== END 2023-11-14 08:21 | disposition home or self-care (01) ==
PROVIDERS: PCP Internal Medicine; Visit Provider Surgery
DX: K57.92 Diverticulitis of intestine, part unspecified, without perforation or abscess without bleeding (principal); K57.30 Diverticulosis of large intestine without perforation or abscess without bleeding
CPT/HCPCS: 74270; 74280

== ENCOUNTER 2023-12-04 15:23 | Outpatient (CLI) | payer MEDICARE, BC, SELFPAY ==
--- OUTSIDE RECORDS SUMMARY | 2023-12-04 15:25 | XMS_ITS | Clinical Summary ---
Author Organization [email or web address] [facility] [employer] Address [place], [place] [address] Care Team Providers Care Inventory Coordinator Name Role Phone Soumya Chen MD Primary Care Provider +1- [phone] Allergies Active Allergy Reactions Criticality Noted Date Comments Glimepiride Vestibular Toxicity 03/05/2022 Glucosamine Myalgia 03/05/2022 Qgiaooi-Kam-Qqr Reductase Inhibitors Myalgia 12/12/2021 Medications Medication Sig [...] Comments Blood Pressure 122/76 04/15/2023 9:55 AM CARE TRAINER Pulse 63 04/15/2023 9:55 AM CARE TRAINER Temperature 36.5 ??C (97.7 ??F) 04/15/2023 9:55 AM CS T Respiratory Rate 16 04/15/2023 9:55 AM CARE TRAINER Oxygen Saturation 97% 04/15/2023 9:55 AM CARE TRAINER Inhaled Oxygen Concentration - - Weight 87.8 kg (193 lb 9.6 oz) 04/15/2023 9:55 A M CARE TRAINER Height 168.9 cm (5' 6.5) 03/07/2022 11:40 AM CS T Body Mass Index 30.78 03/07/2022 11:40 AM CARE TRAINER Plan of Treatment Health Maintenance Due Date [...] age 18+ 12/12/2022 12/12/2021 COVID-19 vaccine series ( season) 2023 12/05/2022, 07/02/2022, 11/27/2021, Additional history exists Influenza for age 65+ 10/26/2023 Advance Directives * Full Code (Latest Code Status on File) Date Activated Date Inactivated Comments 03/07/2022 11:18 AM 03/07/2022 10:31 PM Question Answer Comments Code Status Discussion: Unable to Assess Preferences, Provider to review later Care Teams Inventory Coordinator Relationship Specialty Start Date End Date Soumya Chen MD [address] [place] [id number] PCP - General Internal Medicine 02/15/22
--- NOTE | 2023-12-04 15:30 | PE_ITS ---
[facility] [address] [facility] [address] Phone:?[phone] Fax:?[phone] Referring Physician Information: Soumya Chen M.D. [address] [facility] [address] Phone:?[phone] Fax:?[phone] Patient:Venessa Tomlin D.O.B:?1955 Sex:?Female Phone:?[phone] [facility] MRN:?[id number] Exam Date:?12/04/2023 EXAM: PET/CT EYES TO THIGHS, CANCER RESTAGING CLINICAL INFORMATION: Solitary pulmonary lesion. TECHNICAL INFORMATION: Helical acquisition of data was obtained from the orbits to the upper thighs with reconstruction of 3.75 mm thick images at 3.[address] data was used for attenuation correction. PET scanning was performed through the same anatomic range 50 minutes following administration of 12.85 mCi of 18-FDG delivered intravenously. The patient's glucose at the time of the injection was 93 mg/dL. PET, CT and PET/CT fusion images are interpreted using a computer viewing workstation. PET, CT and PET/CT fusion images were archived and saved in the patient's permanent medical record. COMPARISON: Chest CT from 11/04/2023 were reviewed. Comparison is made to the PET-CT from 04/24/2023. INTERPRETATION: Head and Neck: There are no abnormal hypermetabolic foci within the head or neck. There is physiologic uptake in the intracranial soft tissues. Chest: There are no abnormal hypermetabolic foci within the chest. Background mediastinal blood pool uptake has a maximum SUV of 2.89. Known groundglass nodule in the subpleural right upper lobe (Se 2 Im 95) measures 2.3 x 1.4 x 1.3 cm with maximum SUV of 1.62. Abdomen and Pelvis: There are no abnormal hypermetabolic foci within the abdomen or pelvis. Background hepatic parenchymal uptake has a maximum SUV of 4.07. There is physiologic excretion of radiotracer in the urine and bowel. Skeleton, Musculature, and Integument: No abnormal hypermetabolic foci within the skeleton. No chaya osteoblastic or osteolytic disease. CONCLUSION: 1. No hypermetabolic disease from the skull base to midthighs. 2. Known groundglass nodule in the subpleural right upper lobe measures 2.3 x 1.4 cm with FDG uptake that is less than blood pool. Supposedly, the patient had a chest CT performed June 2016--those images and report were not submitted to me for firsthand review. Recommend review of the 2017 report--what was the size of the lesion at that time? If the lesion has not grown substantially over the past seven years then it is either benign or indolent to the point of doubtful clinical relevancy. If the lesion has grown substantially since 2017 then it may be low-grade neoplasm (i.e., AIS-TAMIA), in which case consultation of a thoracic surgeon should be considered. Electronically signed on 12/05/2023 2:59:00 PM by Christian Yoder M.D. Addendum A ADDENDUM: In the interim, outside CT from 07/15/2016 has become available for review. The patient's known right upper lobe groundglass nodule currently measures 2.3 x 1.4 x 1.3 cm. On the baseline study from 2017, it measured 0.7 x 0.7 x 0.7 cm. This indolent growth pattern may reflect low-grade neoplasm (i.e., AIS-TAMIA) or, less likely, tumefactive scarring from prior inflammatory insult. Consider nonemergent consultation of a thoracic surgeon to discuss the pros and cons of excisional biopsy. Electronically signed on 12/09/2023 9:31:00 AM by Christian Yoder M.D.
== END 2023-12-04 15:24 | disposition home or self-care (01) ==
PROVIDERS: PCP Internal Medicine; Visit Provider Internal Medicine
DX: R91.1 Solitary pulmonary nodule (principal); R91.8 Other nonspecific abnormal finding of lung field
CPT/HCPCS: 78815; A9552

== ENCOUNTER 2024-06-25 08:50 | Outpatient (CLI) | payer MEDICARE, BC, SELFPAY | END 2024-06-25 08:51 | disposition home or self-care (01) | LOC: NFLDREF 06-30 18:54 | PROVIDERS: PCP Internal Medicine; Referring Provider Internal Medicine; Visit Provider Internal Medicine | DX: E11.9 Type 2 diabetes mellitus without complications (principal); E78.5 Hyperlipidemia, unspecified; I10 Essential (primary) hypertension; Z79.84 Long term (current) use of oral hypoglycemic drugs | CPT/HCPCS: 80053; 80061; 82043; 82570 ==

== ENCOUNTER 2025-01-03 09:01 | Outpatient (CLI) | payer MEDICARE, BC, SELFPAY | END 2025-01-03 09:02 | disposition home or self-care (01) | LOC: NFLDREF 01-13 11:29 | PROVIDERS: PCP Internal Medicine; Referring Provider Internal Medicine; Visit Provider Internal Medicine | DX: E11.9 Type 2 diabetes mellitus without complications (principal); E78.5 Hyperlipidemia, unspecified | CPT/HCPCS: 80061 ==